=== PATIENT | male | born 1940 | race Caucasian/White ===

== ENCOUNTER 2022-10-25 10:37 | Emergency (ER) | payer MEDICARE ==
[~2022-10-25] VITALS: Ht 177.8 cm; Wt 106.6 kg
[2022-10-25 10:49] VITALS: BP_SYST 130
[2022-10-25 12:34] LABS: BILIRUBIN,URINE NEGATIVE (NEGATIVE); BLOOD, URINE 3+ (NEGATIVE); CLARITY/URINE TURBID (CLEAR); COLOR,URINE YELLOW (YELLOW); GLUCOSE,URINE NEGATIVE (NEGATIVE); KETONES,URINE NEGATIVE (NEGATIVE); LEUKOCYTE ESTERASE ,URINE 2+ (NEGATIVE); NITRITE, URINE NEGATIVE (NEGATIVE); PROTEIN URINE 2+ (NEGATIVE); UROBILINOGEN,URINE 0.2 (0.2-1.0)
[2022-10-25 12:42] LABS: BACTERIA,URINE MODERATE /HPF (None Seen); WBC,URINE 50-80 /HPF (0-3)
[2022-10-25] MEDS ORDERED: cefTRIAXone 1 GM in LIDOCAINE 1%, 20 ML MDV 2.1 ML IM ONE (12:45)
--- NOTE | 2022-10-25 12:45 | NUR ---
ER at bedside examining patient.
[2022-10-25] MEDS ORDERED: NITR-85 PO (12:46)
[2022-10-25 13:12] VITALS: BP_SYST 148
--- NOTE | 2022-10-25 14:12 | NUR ---
Patient given written and verbal discharge instructions and verbalizes understanding. ER MD discussed with patient the results and treatment provided. Patient in stable condition. ID arm band removed. Rx of MACROBID given. Patient educated on pain management and to follow up with PMD. Opportunity for questions provided and answered. Medication side effect fact sheet provided.
== END 2022-10-25 14:12 | disposition home or self-care (01) ==
LOC: SED 10:37
DX: N39.0 Urinary tract infection, site not specified (principal); R30.0 Dysuria; I10 Essential (primary) hypertension; Z79.899 Other long term (current) drug therapy
CPT/HCPCS: 99283; 81000; 87086; 96372; J0696; J2001